=== PATIENT | male | born 1970 | race Caucasian/White ===

== ENCOUNTER 2017-01-10 21:13 | Emergency (ER) | payer OTHER, BC ==
[~2017-01-10] VITALS: Ht 177.8 cm; Wt 115.7 kg
--- NOTE | 2017-01-10 21:34 | ED Lower Extremity ---
General Chief Complaint: Foreign Body Stated Complaint: FOREIGN BODY RIGHT FOOT Nursing Triage Note: patient reports dropping piece of wood on foot with nail in it. reports nail went through 3rd toe on R foot. Nursing Sepsis Screen: No Definite Risk Source: patient History of Present Illness Time seen by provider: 21:24 Initial Comments PT STATES HE DROPPED A 2X4 BOARD ON HIS RIGHT FOOT, WHICH HAD A 16 EFRAIN NAIL IN IT PT STATES NAIL WENT ALL THE WAY THROUGH HIS TENNIS SHOE (MESH PART OF SHOE) AND ALL THE WAY THROUGH HIS FOOT--BASE OF 3RD TOE OCCURRED AT WORK JUST PRIOR TO ARRIVAL--HOME DEPOT NO OTHER INJURIES PT IS NOT UP TO DATE ON TETANUS VACCINATION PCP: DR. KING Allergies and Home Medications Allergies Coded Allergies: No Known Drug Allergies (Unverified , 01/10/17) Home Medications Ciprofloxacin HCl 500 Mg Tablet #20 500 MG PO BID Prescribed by: EBENEZER REYES on 01/10/172202 Sulfamethoxazole/Trimethoprim 1 Each Tablet #20 1 EACH PO BID Prescribed by: EBENEZER REYES on 01/10/172202 Constitutional: no symptoms reported Musculoskeletal: see HPI Skin: see HPI Psychiatric/Neurological: No Symptoms Reported Past Monfscz-Zsocrw-Crtoih Hx Patient Social History Alcohol Use: Occasionally Uses Recreational Drug Use: No Smoking Status: Never a Smoker Type Used: Smokeless Tobacco Recent Foreign Travel: No Contact w/Someone Who Travel: No Recent Infectious Disease Expo: No Recent Hopitalizations: No Seasonal Allergies Seasonal Allergies: No Surgeries HX Surgeries: Yes Surgeries: Orthopedic Respiratory Hx Respiratory Disorders: No Cardiovascular Hx Cardiac Disorders: Yes (SELF DC'D MEDICATIONS 6 MONTHS AGO, PER PT ON ) Cardiac Disorders: Hypertension Neurological Hx Neurological Disorders: No Reproductive System Hx Reproductive Disorders: No Sexually Transmitted Disease: No Genitourinary Hx Genitourinary Disorders: No Gastrointestinal Hx Gastrointestinal Disorders: No Musculoskeletal Hx Musculoskeletal Disorders: No Endocrine Hx Endocrine Disorders: No HEENT HX ENT Disorders: No Cancer Hx Cancer: No Psychosocial Hx Psychiatric Problems: No Integumentary HX Skin/Integumentary Disorder: No Blood Transfusions Hx Blood Disorders: No Physical Exam Vital Signs Vital Sign - Last 12Hours 01/10/17 21:25 Temp 98.7 Pulse 82 Resp 16 B/P 172/97 Pulse Ox 98 O2 Delivery Room Air Capillary Refill : Less Than 3 Seconds General Appearance: WD/WN no apparent distress Feet: right foot other (THROUGH AND THROUGH PUNCTURE WOUND TO BASE OF RIGHT 3RD TOE. MOTOR/SENSORY/VASCULAR INTACT. 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 no motor/sensory deficits alert normal mood/affect oriented x 3 Skin: normal color warm/dry other ( ABOVE) Progress/Results/Core Measures Results/Orders My Orders Orders-EBENEZER REYES DO Foot, Right, 3 View (01/10/17 21:28) Dipht,Pertuss(Acell),Tet Adult (Boostrix (01/10/17 21:45) Rx-Trimeth/Sulfameth Ds Tab (Rx-Bactrim/ (01/10/17 22:03) Rx-Mupirocin 2% Oint (Rx-Bactroban) (01/10/17 22:03) Rx-Levofloxacin (Rx-Levaquin) (01/10/17 22:03) Medications Given in ED Current Medications Medications Dose Ordered Sig/Josh Route Start Time Stop Time Status Last Admin Dose Admin Diphtheria/ Tetanus/Acell Pertussis 0.5 ml ONCE ONCE IM 01/10/17 21:45 01/10/17 21:46 DC 01/10/17 21:58 0.5 ML Vital Signs/I&O Vital Sign - Last 12Hours 01/10/17 01/10/17 21:25 22:17 Temp 98.7 Pulse 82 84 Resp 16 18 B/P 172/97 Pulse Ox 98 99 O2 Delivery Room Air Blood Pressure Mean: 122 Diagnostic Imaging Comments XRAYS RIGHT FOOT--NO ACUTE PROCESS, PER RADIOLOGIST REPORT @ 2206 Reviewed: Reviewed by Me Departure Impression Impression: Primary Impression: PUNCTURE WOUND RIGHT FOOT INCLUDING 3RD TOE Additional Impression: Sxgzbbemcu-hnjnohmqr-zxjgkwn (DPT) vaccination administered at current visit Disposition: 01 HOME, SELF-CARE Condition: Stable Departure-Patient Inst. Referrals: CHRISTINA KING DO (PCP/Family) Primary Care Physician Patient Instructions: Diphtheria and Tetanus Toxoids, and Acellular Pertussis Vaccine, Wound Care (DC) Add. Discharge Instructions: SOAK FOOT IN WARM SOAPY WATER 2-3 TIMES A DAY KEEP WOUNDS COVERED AND USE ANTIBACTERIAL OINTMENT 2-3 TIMES A DAY TYLENOL AND MOTRIN NEEDED FOR PAIN FOLLOW UP WITH [facility] TOMORROW FOR FURTHER CARE All discharge instructions reviewed with patient and/or family. Voiced understanding. Scripts Ciprofloxacin HCl (Cipro)500 Mg [id number] Mg PO BID #20 TAB Prov:EBENEZER REYES DO 01/10/17 Sulfamethoxazole/Trimethoprim (Bactrim Ds Tablet)1 Each Tablet1 Each PO BID #20 TAB Prov:EBENEZER REYES DO 01/10/17 Images Extremities-Lower 1 - Puncture Wound 1 - Puncture Wound EBENEZER REYES DO Jan 10, 2017 21:34
[2017-01-10] MEDS ORDERED: TETANUS,DIPTH,PERTUSS P/F (BOOSTRIX) 0.5 ML VIAL IM ONE (21:45)
--- NOTE | 2017-01-10 21:58 | Diagnostic Imaging Report ---
INDICATION: 46-year-old male had a nail goes through the right foot at the third MCP joint. COMPARISONS: None IMPRESSION: 3 views of the right foot show no evidence of new or healing fractures, bony destruction or remodeling. No abnormal radiopaque foreign body is seen. Dictated by: Dictated on workstation # [id number]
[2017-01-10] MEDS ORDERED: RX-MUPIROCIN (BACTROBAN) 2% OINT 22 GM TUBE TOP STA (22:03)
[2017-01-10] MEDS ORDERED: SULF1TAB35 PO (22:03)
[2017-01-10] MEDS ORDERED: RX-TRIMETH/SULFA. 160-800 MG (BACTRIM DS) TAB PPK#2 PO STA (22:03)
[2017-01-10] MEDS ORDERED: CIPR-225 PO (22:03)
[2017-01-10] MEDS ORDERED: RX-LEVOFLOXACIN 500 MG (LEVAQUIN) TAB #1 PPK PO STA (22:03)
[2017-01-10 22:17] VITALS: BP 168/90
== END 2017-01-10 22:17 | disposition home or self-care (01) ==
LOC: ER 21:16
DX: S91.331A Puncture wound without foreign body, right foot, initial encounter (principal); Z23 Encounter for immunization; W22.8XXA Striking against or struck by other objects, initial encounter; Y99.8 Other external cause status
CPT/HCPCS: 73630; 90471; 90715; 99283

== ENCOUNTER 2017-04-01 17:50 | Emergency (ER) | payer BC ==
[~2017-04-01] VITALS: Ht 182.9 cm; Wt 102.1 kg
[~2017-04-01 17:50] MED LIST: CIPR-225 PO; SULF1TAB35 PO
[2017-04-01 18:07] LABS: BASOPHILS % (AUTO) 0 % (0-10); EOSINOPHILS # (AUTO) 0.2 10^3/uL (0.0-0.3); EOSINOPHILS % (AUTO) 3 % (0-10); LYMPHOCYTES # (AUTO) 2.5 X 10^3 (1.0-4.0); LYMPHOCYTES % (AUTO) 36 % (12-44); MEAN CORPUSCULAR HEMOGLOBIN 27 PG (25-34); MEAN CORPUSCULAR HGB CONC 34 G/DL (32-36); MEAN CORPUSCULAR VOLUME 80 FL (80-99); MONOCYTES # (AUTO) 0.4 X 10^3 (0.0-1.0); MONOCYTES % (AUTO) 6 % (0-12); NEUTROPHILS # (AUTO) 3.8 X 10^3 (1.8-7.8); NEUTROPHILS % (AUTO) 54 % (42-75); PLATELET COUNT 272 10^3/uL (130-400); RED BLOOD COUNT 5.29 10^6/uL (4.35-5.85); RED CELL DISTRIBUTION WIDTH 13.6 % (10.0-14.5)
[2017-04-01] MEDS ORDERED: FAMOTIDINE 20MG/2ML IV (PEPCID) IV STA (18:11)
[2017-04-01] MEDS ORDERED: ASPIRIN 81 MG CHEW (CHILDREN'S ASA) PO ONE (18:15)
[2017-04-01] MEDS ORDERED: ANTACID SUSP 30 ML UDC (MYLANTA) PO ONE (18:15)
[2017-04-01] MEDS ORDERED: LIDOCAINE 2% VISCOUS 15 ML UDC PO ONE (18:15)
[2017-04-01 18:16] LABS: PROTHROMBIN TIME PATIENT 12.9 SEC (12.2-14.7)
--- NOTE | 2017-04-01 18:21 | ED Chest Pain ---
General Chief Complaint: Chest Pain Stated Complaint: SEVERE CHEST PAINS Nursing Triage Note: PT STATES HE STARTED HAVING CHEST PAIN THIS AFTERNOON AROUND 1300 AFTER EATING A CHEESEBURGER. STATES HE TRIED TO REST TO SEE IF IT WOULD GO AWAY BUT IT HAS BEEN WORSENING. STATES IF HE LIFTS HIS ARMS UP AND TAKES A DEEP BREATH IT HELPS. Nursing Sepsis Screen: No Definite Risk Source: patient Exam Limitations: no limitations History of Present Illness Time seen by provider: 18:00 Initial Comments Here with chest pain that is at the area of the xyphoid and feels like a pressure. Onset at 1 pm and persisted since after eating fast food. Reports better with deep breath or elevating arms or arching back forward. Denies previous. Timing/Duration: 4-6 hours, changing over time Severity/Quality: moderate, aching, pressure Location: epigastric Radiation: no radiation Activities at Onset: none Prior CP/Workup: no prior cardiac workup Modifying Factors: worse with movement ASA po YARD DRIVER: No NTG SL YARD DRIVER: No Associated Symptoms: abdominal pain, No back pain, No diaphoresis, No edema, No fever/chills, nausea/vomiting, No shortness of breath, No weakness Allergies and Home Medications Allergies Coded Allergies: No Known Drug Allergies (Unverified , 01/10/17) Home Medications Ciprofloxacin HCl 500 Mg Tablet, 500 MG PO BID, #20 Prescribed by: EBENEZER REYES on 01/10/172202 Sulfamethoxazole/Trimethoprim 1 Each Tablet, 1 EACH PO BID, #20 Prescribed by: EBENEZER REYES on 01/10/173 Review of Systems Constitutional: see HPI, No chills, No fever EENTM: No Symptoms Reported Respiratory: See HPI Cardiovascular: See HPI, Chest Pain, Denies Edema, Denies Lightheadedness Gastrointestinal: Denies Diarrhea, Nausea, Denies Vomiting Genitourinary: No Symptoms Reported Musculoskeletal: no symptoms reported Skin: no symptoms reported Psychiatric/Neurological: No Symptoms Reported All Other Systems Reviewed Negative Unless Noted: Yes Past Qgenjyq-Awfhyp-Ogksdh Hx Patient Social History Alcohol Use: Denies Use Recreational Drug Use: No Smoking Status: Light Tobacco Smoker Type Used: Smokeless Tobacco Recent Foreign Travel: No Contact w/Someone Who Travel: No Recent Infectious Disease Expo: No Recent Hopitalizations: No Seasonal Allergies Seasonal Allergies: No Surgeries HX Surgeries: Yes Surgeries: Orthopedic Respiratory Hx Respiratory Disorders: No Cardiovascular Hx Cardiac Disorders: Yes (SELF DC'D MEDICATIONS 6 MONTHS AGO, PER PT ON ) Cardiac Disorders: Hypertension Neurological Hx Neurological Disorders: No Reproductive System Hx Reproductive Disorders: No Sexually Transmitted Disease: No Genitourinary Hx Genitourinary Disorders: No Gastrointestinal Hx Gastrointestinal Disorders: No Musculoskeletal Hx Musculoskeletal Disorders: No Endocrine Hx Endocrine Disorders: No HEENT HX ENT Disorders: No Cancer Hx Cancer: No Psychosocial Hx Psychiatric Problems: No Integumentary HX Skin/Integumentary Disorder: No Blood Transfusions Hx Blood Disorders: No Reviewed Nursing Assessment Reviewed/Agree w Nursing PMH: Yes Family Medical History Significant Family History: No Pertinent Family Hx Physical Exam Vital Signs Vital Sign - Last 12Hours 04/01/17 04/01/17 17:54 18:11 Temp 98.3 Pulse 72 Resp 21 B/P (MAP) 155/107 O2 Delivery Room Air Capillary Refill : Less Than 3 Seconds General Appearance: No Apparent Distress, WD/WN HEENT: PERRL/EOMI, Pharynx Normal Neck: Non Tender, Supple Respiratory: Lungs Clear, Normal Breath Sounds Cardiovascular: Regular Rate, Rhythm, No Murmur Gastrointestinal: Non Tender, Soft Extremity: Non Tender, No Calf Tenderness Neurologic/Psychiatric: Alert, Oriented x3 Skin: Normal Color, Warm/Dry Progress/Results/Core Measures Results/Orders Lab Results Laboratory Tests Test 04/01/17 17:55 04/01/17 20:00 Range/Units White Blood Count 7.0 4.3-11.0 10^3/uL Red Blood Count 5.29 4.35-5.85 10^6/uL Hemoglobin 14.2 13.3-17.7 G/DL Hematocrit 42 40-54 % Mean Corpuscular Volume 80 80-99 FL Mean Corpuscular Hemoglobin 27 25-34 PG Mean Corpuscular Hemoglobin Concent 34 32-36 G/DL Red Cell Distribution Width 13.6 10.0-14.5 % Platelet Count 272 130-400 10^3/uL Mean Platelet Volume 10.0 7.4-10.4 FL Neutrophils (%) (Auto) 54 42-75 % Lymphocytes (%) (Auto) 36 12-44 % Monocytes (%) (Auto) 6 0-12 % Eosinophils (%) (Auto) 3 0-10 % Basophils (%) (Auto) 0 0-10 % Neutrophils # (Auto) 3.8 1.8-7.8 X 10^3 Lymphocytes # (Auto) 2.5 1.0-4.0 X 10^3 Monocytes # (Auto) 0.4 0.0-1.0 X 10^3 Eosinophils # (Auto) 0.2 0.0-0.3 10^3/uL Basophils # (Auto) 0.0 0.0-0.1 10^3/uL Prothrombin Time 12.9 12.2-14.7 SEC INR Comment 1.0 0.8-1.4 Activated Partial Thromboplast Time 29 24-35 SEC D-Dimer 0.31 0.00-0.49 UG/ML Sodium Level 136 135-145 MMOL/L Potassium Level 3.7 3.6-5.0 MMOL/L Chloride Level 100 98-107 MMOL/L Carbon Dioxide Level 26 21-32 MMOL/L Anion Gap 10 5-14 MMOL/L Blood Urea Nitrogen 17 7-18 MG/DL Creatinine 1.17 0.60-1.30 MG/DL Estimat Glomerular Filtration Rate > 60 BUN/Creatinine Ratio 15 Glucose Level 119 H 70-105 MG/DL Calcium Level 9.1 8.5-10.1 MG/DL Magnesium Level 2.3 1.8-2.4 MG/DL Total Bilirubin 0.5 0.1-1.0 MG/DL Aspartate Amino Transf (AST/SGOT) 23 5-34 U/L Alanine Aminotransferase (ALT/SGPT) 37 0-55 U/L Alkaline Phosphatase 71 40-136 U/L Myoglobin 41.7 37.3 10.0-92.0 NG/ML Troponin I < 0.30 < 0.30 <0.30 NG/ML Total Protein 7.4 6.4-8.2 G/DL Albumin 4.4 3.2-4.5 G/DL Amylase Level 52 25-125 U/L Lipase 28 8-78 U/L My Orders Orders - RIVAS PUGA MD Fibrin Degradation Products (04/01/17 18:09) Chest Pa/Lat (2 View) (04/01/17 18:10) Famotidine Injection (Pepcid Injection) (04/01/17 18:11) Aspirin Chewable Tablet (Baby Aspirin Ch (04/01/17 18:15) Lidocaine 2% Viscous 15 Ml (Xylocaine Vi (04/01/17 18:15) Antacid Suspension (Mylanta Suspension (04/01/17 18:15) Amylase (04/01/17 18:11) Lipase (04/01/17 18:11) Troponin I (04/01/17 19:39) Ekg Tracing (04/01/17 19:39) Myoglobin Serum (04/01/17 19:39) Medications Given in ED Current Medications Medications Dose Ordered Sig/Josh Route Start Time Stop Time Status Last Admin Dose Admin Al Hydrox/Mg Hydrox/Simethicone 30 ml ONCE ONCE PO 04/01/17 18:15 04/01/17 18:16 DC 04/01/17 18:27 30 ML Aspirin 324 mg ONCE ONCE PO 04/01/17 18:15 04/01/17 18:16 DC 04/01/17 18:27 324 MG Lidocaine HCl 15 ml ONCE ONCE PO 04/01/17 18:15 04/01/17 18:16 DC 04/01/17 18:27 15 ML Vital Signs/I&O Vital Sign - Last 12Hours 04/01/17 04/01/17 17:54 18:11 Temp 98.3 Pulse 72 Resp 21 B/P (MAP) 155/107 O2 Delivery Room Air Blood Pressure Mean: 123 Progress Note : Progress Note Seen and evaluated. Chest pain protocol. ASA 324mg PO. Pepcid 20 mg IV. GI cocktail po. Monitor patient. 1929. Pain completely resolved early in visit after meds. Remains pain free. Recheck troponin, myoglobin and EKG at 1999. 2042, Labs negative. Repeat EKG normal. No pain. DC home with return precautions. Patient verbalized understanding of instructions and agreement with plan. ECG Initial ECG Impression Date: April 01, 2017 Initial ECG Impression Time: 17:56 Initial ECG Rate: 65 Initial ECG Rhythm: Normal Sinus Initial ECG Impression: Normal Initial ECG Comparisson: No Previous ECG Available Comment Sinus rhythm with normal axis. No evidence of STEMI. Interpreted by me. EKG : EKG Time: 19:58 Rate: 55 Rhythm: Normal Sinus ECG Comparisson: Unchanged ECG Impression: Normal Departure Impression Impression: Primary Impression: Chest pain Qualified Codes: R07.9 - Chest pain, unspecified Disposition: 01 HOME, SELF-CARE Condition: Stable Departure-Patient Inst. Decision time for Depature: 20:52 Referrals: GIOVAN[facility] LOCKHART [facility] Mynor BOSTON MD, BASHAR J MD ORENDER, JACQUELINE S DO (PCP/Family) Primary Care Physician Patient Instructions: Chest Pain (DC) Add. Discharge Instructions: All discharge instructions reviewed with patient and/or family. Voiced understanding. Continue home meds as directed. You may take famotidine (Pepcid) 20 mg twice daily for the next several days and then daily as needed. Follow up with your doctor and the heart doctor next week. Call Tuesday for appointment. Return for worse pain, vomiting, sweating, weakness or other concerns as needed. Copy Copies To 1: JASMEET BISHOP DO Copies To 2: GIOVANNA LOCKHART MD [facility] RIVAS PUGA MD April 01, 2017 18:21
[2017-04-01 18:30] LABS: ALANINE AMINOTRANSFERASE 37 U/L (0-55); ALBUMIN 4.4 G/DL (3.2-4.5); ANION GAP 10 MMOL/L (5-14); ASPARTATE AMINO TRANSFERASE 23 U/L (5-34); BILIRUBIN,TOTAL 0.5 MG/DL (0.1-1.0); BLOOD UREA NITROGEN 17 MG/DL (7-18); BUN/CREATININE RATIO 15; CALCIUM 9.1 MG/DL (8.5-10.1); CARBON DIOXIDE 26 MMOL/L (21-32); CHLORIDE 100 MMOL/L (98-107); CREATININE SERUM 1.17 MG/DL (0.60-1.30); GFR ESTIMATED > 60; GLUCOSE 119 MG/DL (70-105); MAGNESIUM 2.3 MG/DL (1.8-2.4); POTASSIUM 3.7 MMOL/L (3.6-5.0); SODIUM 136 MMOL/L (135-145); TOTAL PROTEIN 7.4 G/DL (6.4-8.2)
[2017-04-01 18:31] LABS: MYOGLOBIN SERUM 41.7 NG/ML (10.0-92.0)
[2017-04-01 18:45] LABS: AMYLASE 52 U/L (25-125); LIPASE 28 U/L (8-78)
--- NOTE | 2017-04-01 19:11 | Diagnostic Imaging Report ---
Clinical indication: Patient with chest pain that is located in the center of the chest and started this afternoon and elevated BP. Exam: Chest x-ray PA and lateral views. Comparisons: None. Findings: Lungs/pleura: Lungs are clear. There is no pneumothorax. There is no pleural effusion. Mediastinum: Unremarkable. Pulmonary vasculature: Unremarkable. Heart: Unremarkable. Bones/extrathoracic soft tissue: Unremarkable. Impression: There is no radiographic evidence of acute cardiopulmonary process. Dictated by: Dictated on workstation # [id number]
[2017-04-01 20:37] LABS: MYOGLOBIN SERUM 37.3 NG/ML (10.0-92.0); TROPONIN I < 0.30 NG/ML (<0.30)
[2017-04-01 20:57] VITALS: BP 130/83
== END 2017-04-01 20:57 | disposition home or self-care (01) ==
LOC: EDUNIT# 17:50 → ER 17:53
DX: R07.9 Chest pain, unspecified (principal); I10 Essential (primary) hypertension; F17.220 Nicotine dependence, chewing tobacco, uncomplicated
CPT/HCPCS: 36415; 71020; 80053; 82150; 83690; 83735; 83874; 84484; 85025; 85379; 85610; 85730; 93005; 93041; 96374